=== PATIENT | female | born 1980 | race Caucasian/White ===

== ENCOUNTER 2019-01-06 11:19 | Inpatient (IN) ==
[2019-01-06] MEDS ORDERED: 0.9 % Sodium Chloride 1,000 ML IVC ONE ×2 (11:47→12:58)
[2019-01-06] MEDS ORDERED: cefTRIAXone 1,000 MG in Water for inj. (sterile) 10 ML IVP ONE (11:47)
[2019-01-06] MEDS ORDERED: Azithromycin 500 MG in 0.9 % Sodium Chloride 250 ML IVPB ONE (11:47)
[2019-01-06] MEDS ORDERED: Isovue-370 500 ML BOTTLE IVP ONE (11:52)
[2019-01-06] MEDS ORDERED: *HR* FentaNYL (PF) 100 MCG/2 ML VIAL IVP ONE ×2 (11:52→14:36)
[2019-01-06 12:23] LABS: Red Cell Distribution Width 12.1 % (11.5-14.5)
[2019-01-06 12:24] LABS: Hematocrit 34.9 % (35.3-44.9); Hemoglobin 13.1 g/dL (11.5-15.4); Mean Corpuscular Hemoglobin 39.5 pg (28.0-33.3); Mean Corpuscular Volume 105.1 fL (83.0-100.0); Mean Platelet Volume 11.4 fL (9.4-12.4); Platelet Count 84 K/mcL (140-400); Red Blood Count 3.32 M/mcL (3.82-4.97); White Blood Count 5.2 K/mcL (4.3-11.1)
[2019-01-06 12:25] LABS: Mean Corpuscular HGB Conc 37.5 g/dL (31.6-35.5)
[2019-01-06 12:26] LABS: INR 1.4; Prothrombin Time 16.3 Seconds (9.4-12.1)
[2019-01-06 12:29] LABS: Activated Partial Thrombo Time 28.7 Seconds (26.0-36.0)
[2019-01-06 12:54] LABS: Lymphocytes # 0.4 K/mcL (0.6-4.6); Monocytes # 0.2 K/mcL (0.0-1.3); Neutrophils # 4.5 K/mcL (1.6-8.9)
[2019-01-06 12:55] LABS: Alanine Aminotransferase 35 Units/L (7-52); Albumin 2.5 g/dL (3.5-5.7); Albumin/Globulin Ratio 0.8 (1.1-2.2); Alkaline Phosphatase 168 Units/L (34-104); Aspartate Amino Transferase 75 Units/L (13-39); BUN/Creatinine Ratio 19 (6-26); Bilirubin,Direct 5.6 mg/dL (0.0-0.2); Bilirubin,Indirect 2.1 mg/dL (0.0-1.0); Bilirubin,Total 7.7 mg/dL (0.3-1.0); Blood Urea Nitrogen 5 mg/dL (6-20); Calcium 7.6 mg/dL (8.6-10.3); Carbon Dioxide 21 mEq/L (23-29); Chloride 97 mEq/L (98-107); Globulin 3.1 g/dL (2.4-3.5); Glucose 76 mg/dL (70-105); Lipase 18 Units/L (11-82); Magnesium 1.6 mg/dL (1.6-2.6); Osmolality,Calculated 266 (280-300); Phosphorous 1.4 mg/dL (2.7-4.5); Platelet Estimate Decreased (Normal); Potassium 2.4 mEq/L (3.5-5.1); Reactive Lymphocytes Present (Not Present); Sodium 130 mEq/L (136-145); Total Protein 5.6 g/dL (6.4-8.9); Troponin I < 0.03 ng/mL (< 0.04); eGFR For African Americans > 60 (> 60); eGFR For Non-African Americans > 60 (> 60)
[2019-01-06 13:36] LABS: Bilirubin,Urine Large (Negative); Blood,Urine Negative (Negative); Clarity,Urine Cloudy (Clear); Color,Urine Orange (Yellow); Glucose,Urine (UA) Normal (Normal); Ketones,Urine 80 mg/dL (Negative); Leukocyte Esterase,Urine Small (Negative); Nitrite,Urine Positive (Negative); Protein,Urine 30 mg/dL (Neg-Trace)
[2019-01-06 13:39] LABS: RBC,Urine 0-3 per hpf (0-3); Squamous Epithelial Cell,Urine Many per lpf (None-Few)
[2019-01-06 14:18] LABS: Bacteria,Urine Many per hpf (None-Few)
[2019-01-06 14:19] LABS: Renal Epithelial Cells,Urine Few per hpf (None-Few); Transitional Epi Cells,Urine Moderate per hpf (None-Few); White Blood Cell Casts,Urine Few per lpf (None Seen)
[2019-01-06 14:24] LABS: Other Crystals,Urine Present
[2019-01-06] MEDS ORDERED: 0.9 % Sodium Chloride 1,000 ML ONE (17:06)
[2019-01-06] MEDS ORDERED: Naloxone 0.4 MG/ML INJ IVP PRN (17:22)
[2019-01-06] MEDS ORDERED: *HR* LORazepam 2 MG/ML VIAL IVP PRN ×3 (18:02)
[2019-01-06 18:53] LABS: VBG HCO3 21 mEq/L (21-27); VBG PCO2 40 mmHg (41-51); VBG PH 7.33 pH Units (7.32-7.42); VBG PO2 92 mmHg (25-50)
[2019-01-06 19:09] LABS: Alanine Aminotransferase 33 Units/L (7-52); Albumin 2.5 g/dL (3.5-5.7); Albumin/Globulin Ratio 0.9 (1.1-2.2); Alkaline Phosphatase 147 Units/L (34-104); Aspartate Amino Transferase 71 Units/L (13-39); BUN/Creatinine Ratio 14 (6-26); Bilirubin,Indirect 2.1 mg/dL (0.0-1.0); Bilirubin,Total 7.1 mg/dL (0.3-1.0); Blood Urea Nitrogen 4 mg/dL (6-20); Carbon Dioxide 20 mEq/L (23-29); Chloride 100 mEq/L (98-107); Globulin 2.9 g/dL (2.4-3.5); Glucose 66 mg/dL (70-105); Magnesium 1.6 mg/dL (1.6-2.6); Osmolality,Calculated 267 (280-300); Phosphorous 1.3 mg/dL (2.7-4.5); Sodium 131 mEq/L (136-145); Total Protein 5.4 g/dL (6.4-8.9); eGFR For African Americans > 60 (> 60); eGFR For Non-African Americans > 60 (> 60)
[2019-01-06] MEDS ORDERED: Potassium Phosphate 44 MEQ in 0.9 % Sodium Chloride 250 ML IVPB ONE (19:23)
[2019-01-06 19:34] LABS: Hepatitis B Surface Antigen Nonreactive (Nonreactive)
[2019-01-06 20:02] LABS: Hepatitis C Virus Antibody Nonreactive (Nonreactive)
[2019-01-06 20:03] LABS: Hepatitis B Core IgM Nonreactive (Nonreactive)
[2019-01-06 20:04] LABS: Hepatitis A Antibody IgM Nonreactive (Nonreactive)
[2019-01-06] MEDS: Ibuprofen 400 MG TABLET PO PRN (20:29)
[2019-01-06] MEDS: 0.9 % Sodium Chloride 1,000 ML IVC SCH (20:32)
[2019-01-06] MEDS ORDERED: Menthol 9.1 MG LOZENGE PO PRN (23:19)
[2019-01-07] MEDS ORDERED: Ibuprofen 400 MG TABLET PO ONE (00:30)
[2019-01-07] MEDS: Nicotine 7 MG PATCH.TD24 TD SCH ×2 (00:34→08:59)
[2019-01-07 04:31] LABS: Basophils # 0.1 K/mcL (0.0-0.2); Basophils % 0.9 %; Hematocrit 31.4 % (35.3-44.9); Hemoglobin 11.5 g/dL (11.5-15.4); Immature Platelets 10.4 % (1.1-6.1); Lymphocytes # 0.5 K/mcL (0.6-4.6); Lymphocytes % 6.6 %; Mean Corpuscular HGB Conc 36.6 g/dL (31.6-35.5); Mean Corpuscular Hemoglobin 38.5 pg (28.0-33.3); Mean Platelet Volume 11.7 fL (9.4-12.4); Monocytes # 0.5 K/mcL (0.0-1.3); Monocytes % 6.6 %; Neutrophils # 5.8 K/mcL (1.6-8.9); Red Blood Count 2.99 M/mcL (3.82-4.97); Red Cell Distribution Width 12.7 % (11.5-14.5); Segmented Neutrophils % 83.9 %; White Blood Count 6.9 K/mcL (4.3-11.1)
[2019-01-07 04:35] LABS: INR 1.5; Prothrombin Time 17.5 Seconds (9.4-12.1)
[2019-01-07 04:44] LABS: Albumin 2.2 g/dL (3.5-5.7); Albumin/Globulin Ratio 0.9 (1.1-2.2); Bilirubin,Indirect 1.8 mg/dL (0.0-1.0); Bilirubin,Total 6.8 mg/dL (0.3-1.0); Globulin 2.5 g/dL (2.4-3.5); Total Protein 4.7 g/dL (6.4-8.9)
[2019-01-07 04:46] LABS: BUN/Creatinine Ratio 20 (6-26); Blood Urea Nitrogen 4 mg/dL (6-20); Carbon Dioxide 21 mEq/L (23-29); Chloride 102 mEq/L (98-107); Glucose 113 mg/dL (70-105); Magnesium 2.6 mg/dL (1.6-2.6); Osmolality,Calculated 270 (280-300); Phosphorous 2.8 mg/dL (2.7-4.5); Potassium 3.4 mEq/L (3.5-5.1); Sodium 131 mEq/L (136-145); eGFR For African Americans > 60 (> 60); eGFR For Non-African Americans > 60 (> 60)
[2019-01-07 05:05] LABS: Platelet Count 70 K/mcL (140-400)
[2019-01-07 05:17] LABS: Large Platelets Present (Not Present); Platelet Estimate Decreased (Normal); Poikilocytosis 1+ (Not Present); Target Cells 1+ (Not Present)
[2019-01-07] MEDS ORDERED: *HR* Heparin 5,000 UNIT/ML VIAL SQ SCH (06:00)
[2019-01-07] MEDS: cefTRIAXone 1,000 MG in 0.9 % Sodium Chloride Mini Bag 100 ML IVPB SCH (08:55)
[2019-01-07] MEDS: Thiamine (B-1) 100 MG TABLET PO SCH (08:58)
[2019-01-07] MEDS: Vitamin B Complex/Vit C/Vit E 1 EACH TABLET PO SCH (08:58)
[2019-01-07] MEDS: Folic Acid 1 MG TABLET PO SCH (08:58)
[2019-01-07] MEDS ORDERED: cefTRIAXone 1,000 MG in Water for inj. (sterile) 10 ML IVP SCH (09:00)
[2019-01-07] MEDS ORDERED: Azithromycin 500 MG in 0.9 % Sodium Chloride 250 ML IVPB ONE (09:00)
[2019-01-07] MEDS: 0.9 % Sodium Chloride 1,000 ML IVC SCH (16:02)
[2019-01-07] MEDS: Ibuprofen 400 MG TABLET PO PRN (18:39)
[2019-01-07] MEDS: Melatonin 3 MG TABLET PO PRN (23:26)
[2019-01-08] MEDS: Ibuprofen 400 MG TABLET PO PRN ×3 (04:35→17:38)
[2019-01-08] MEDS: Ondansetron 4 MG/2 ML VIAL IVP PRN ×2 (05:25→17:38)
[2019-01-08 06:37] LABS: Basophils # 0.1 K/mcL (0.0-0.2); Basophils % 0.6 %; Eosinophils # 0.1 K/mcL (0.0-0.6); Eosinophils % 0.7 %; Hematocrit 30.4 % (35.3-44.9); Hemoglobin 10.8 g/dL (11.5-15.4); Immature Granulocytes % 7.6 % (0-4); Lymphocytes % 10.7 %; Mean Corpuscular HGB Conc 35.5 g/dL (31.6-35.5); Mean Corpuscular Hemoglobin 37.8 pg (28.0-33.3); Mean Corpuscular Volume 106.3 fL (83.0-100.0); Mean Platelet Volume 11.3 fL (9.4-12.4); Monocytes # 0.9 K/mcL (0.0-1.3); Monocytes % 10.4 %; Platelet Count 129 K/mcL (140-400); Red Blood Count 2.86 M/mcL (3.82-4.97); Red Cell Distribution Width 12.6 % (11.5-14.5); White Blood Count 8.9 K/mcL (4.3-11.1)
[2019-01-08 06:50] LABS: Neutrophils # 6.2 K/mcL (1.6-8.9)
[2019-01-08 07:07] LABS: Blood Urea Nitrogen 4 mg/dL (6-20); Carbon Dioxide 25 mEq/L (23-29); Chloride 100 mEq/L (98-107); Glucose 110 mg/dL (70-105); Osmolality,Calculated 270 (280-300); Potassium 3.4 mEq/L (3.5-5.1); Sodium 131 mEq/L (136-145)
[2019-01-08 07:29] LABS: Platelet Estimate Slight Decrease (Normal); Polychromasia 1+ (Not Present)
[2019-01-08] MEDS: Nicotine 7 MG PATCH.TD24 TD SCH (08:43)
[2019-01-08] MEDS: Thiamine (B-1) 100 MG TABLET PO SCH (08:44)
[2019-01-08] MEDS: cefTRIAXone 1,000 MG in 0.9 % Sodium Chloride Mini Bag 100 ML IVPB SCH (08:44)
[2019-01-08] MEDS: Vitamin B Complex/Vit C/Vit E 1 EACH TABLET PO SCH (08:44)
[2019-01-08] MEDS: Azithromycin 250 MG TABLET PO SCH (08:44)
[2019-01-08] MEDS: Folic Acid 1 MG TABLET PO SCH (08:44)
[2019-01-08 09:13] LABS: Alanine Aminotransferase 48 Units/L (7-52); Albumin 2.3 g/dL (3.5-5.7); Albumin/Globulin Ratio 0.9 (1.1-2.2); Alkaline Phosphatase 202 Units/L (34-104); Aspartate Amino Transferase 95 Units/L (13-39); Globulin 2.6 g/dL (2.4-3.5); Total Protein 4.9 g/dL (6.4-8.9)
[2019-01-08 11:10] LABS: INR 1.3; Prothrombin Time 14.6 Seconds (9.4-12.1)
[2019-01-08] MEDS: PrednisoLONE Oral Soln 15 MG/5 ML UDC PO SCH (11:20)
[2019-01-08] MEDS ORDERED: Albuterol 2.5 MG/3 ML NEBULIZER IH ONE (15:37)
[2019-01-08] MEDS: Melatonin 3 MG TABLET PO PRN (22:24)
[2019-01-09] MEDS: Ibuprofen 400 MG TABLET PO PRN ×2 (02:03→15:26)
[2019-01-09] MEDS: Levalbuterol Neb 1.25 MG/3 ML IH SCH ×3 (04:00→15:50)
[2019-01-09 06:15] LABS: INR 1.3; Prothrombin Time 15.1 Seconds (9.4-12.1)
[2019-01-09 06:16] LABS: Basophils # 0.1 K/mcL (0.0-0.2); Basophils % 0.9 %; Eosinophils % 0.2 %; Hematocrit 31.3 % (35.3-44.9); Lymphocytes # 1.5 K/mcL (0.6-4.6); Lymphocytes % 11.7 %; Mean Corpuscular HGB Conc 35.1 g/dL (31.6-35.5); Mean Corpuscular Hemoglobin 37.7 pg (28.0-33.3); Mean Corpuscular Volume 107.2 fL (83.0-100.0); Mean Platelet Volume 11.5 fL (9.4-12.4); Monocytes # 1.1 K/mcL (0.0-1.3); Monocytes % 8.2 %; Platelet Count 180 K/mcL (140-400); Red Blood Count 2.92 M/mcL (3.82-4.97); Red Cell Distribution Width 12.8 % (11.5-14.5); White Blood Count 12.8 K/mcL (4.3-11.1)
[2019-01-09 06:48] LABS: Alanine Aminotransferase 65 Units/L (7-52); Albumin 2.5 g/dL (3.5-5.7); Albumin/Globulin Ratio 0.9 (1.1-2.2); Alkaline Phosphatase 262 Units/L (34-104); Aspartate Amino Transferase 108 Units/L (13-39); BUN/Creatinine Ratio 23 (6-26); Bilirubin,Direct 4.1 mg/dL (0.0-0.2); Bilirubin,Indirect 1.9 mg/dL (0.0-1.0); Blood Urea Nitrogen 5 mg/dL (6-20); Calcium 8.3 mg/dL (8.6-10.3); Carbon Dioxide 26 mEq/L (23-29); Chloride 100 mEq/L (98-107); Globulin 2.8 g/dL (2.4-3.5); Glucose 102 mg/dL (70-105); Osmolality,Calculated 277 (280-300); Potassium 3.6 mEq/L (3.5-5.1); Sodium 135 mEq/L (136-145); Total Protein 5.3 g/dL (6.4-8.9); eGFR For African Americans > 60 (> 60); eGFR For Non-African Americans > 60 (> 60)
[2019-01-09 06:59] LABS: Reactive Lymphocytes Present (Not Present)
[2019-01-09] MEDS: Thiamine (B-1) 100 MG TABLET PO SCH (09:01)
[2019-01-09] MEDS: PrednisoLONE Oral Soln 15 MG/5 ML UDC PO SCH (09:01)
[2019-01-09] MEDS: Folic Acid 1 MG TABLET PO SCH (09:01)
[2019-01-09] MEDS: Azithromycin 250 MG TABLET PO SCH (09:01)
[2019-01-09] MEDS: Nicotine 7 MG PATCH.TD24 TD SCH (09:02)
[2019-01-09] MEDS: cefTRIAXone 1,000 MG in 0.9 % Sodium Chloride Mini Bag 100 ML IVPB SCH (09:02)
[2019-01-09] MEDS: Vitamin B Complex/Vit C/Vit E 1 EACH TABLET PO SCH (09:02)
[2019-01-09] MEDS ORDERED: Nicotine 14 MG PATCH.TD24 TD SCH (09:15)
[2019-01-09 13:33] LABS: AFP Tumor Marker Non-Pregnant 6 ng/mL (0-9)
[2019-01-09 15:24] VITALS: BP 116/69
[2019-01-10 09:50] LABS: ANA IgG by ELISA NONE DETECTED (None Detected)
[2019-01-10 09:51] LABS: Serine Protease-3 Antibody 0 AU/mL (0-19)
[2019-01-10 15:23] LABS: F-Actin (sm muscle) Ab IgG 7 Units (0-19)
== END 2019-01-09 18:38 | disposition home or self-care (01) | DRG 720 ==
LOC: EMEROOARM 11:19 → 2ANU 11:19 → SUATTDRO 17:16 → 2ANU 18:08
PROVIDERS: ADMIT Internal Medicine; ATTEND Internal Medicine